=== PATIENT | female | born 1945 | race Caucasian/White ===

== ENCOUNTER 2018-05-17 19:59 | Emergency (ER) | payer SELFPAY ==
[2018-05-17 20:16] LABS: BASO % 0.3 % (0-6); EOS % 1.3 % (0-6); GRAN % 54.8 % (47-80); HEMATOCRIT 39.8 % (35.0-47.0); HEMOGLOBIN 11.9 gm/dl (11.6-16.0); LYMPH % 37.1 % (16-45); MEAN CELL VOLUME 92.1 fl (81-97); MEAN CORPUSCULAR HEMOGLOBIN 27.5 pg (27-33); MEAN CORPUSCULAR HGB CONC 29.9 g/dl (32-36); MEAN PLATELET VOLUME 10.2 fl (7.4-10.4); MONO % 6.5 % (0-9); PLATELET COUNT 249 K/uL (130-400); RED BLOOD COUNT 4.32 M/uL (3.80-5.40); RED CELL DISTRIBUTION WIDTH 14.6 % (11.5-14.5); WHITE BLOOD COUNT W/O DIFF 7.1 K/uL (4.2-12.2)
[2018-05-17 20:23] LABS: BILIRUBIN,TOTAL 0.2 mg/dL (0.2-1.0)
[2018-05-17 20:24] LABS: TOTAL PROTEIN 6.1 g/dL (6.6-8.7)
[2018-05-17 20:29] LABS: ALB/GLOB RATIO 1.7 (1.1-1.8); ALBUMIN 3.8 g/dL (4.0-5.0)
[2018-05-17 20:31] LABS: NTpro B-NATRIURETIC PEPTIDE 131.3 pg/mL (<125)
--- NOTE | 2018-05-17 21:16 | Emergency Department Record ---
History of Present Illness - General Chief Complaint: Fall Injury Stated Complaint: FALL INJURY TO HEAD. ON A BLOOD THINNER Time Seen by Provider: 05/17/18 20:07 Source: Patient Mode of Arrival: Wheelchair Limitations: No limitations - History of Present Illness Initial Comments: pt fell backwards in a chair hitting head on dirt. no loc. she is having head and neck and back pain MD Complaint: Fall Onset/Timin -: Hour(s) Fall From: Chair Fall Witnessed: Yes, by family Loss of Consciousness: None Prolonged Down Time?: No Symptoms Prior to Fall: None Location: Head, Neck, Back - [place] Coma Scale Eye Response: (4) Open spontaneously Motor Response: (6) Obeys commands Verbal Response: (5) Oriented [place] Total: 15 - Related Data Home Medications Medication Instructions Recorded Confirmed Last Taken Diltiazem HCl [Cardizem Cd] 240 mg PO DAILY 05/17/18 05/17/18 Unknown Oxycodone HCl/Acetaminophen 1 tab PO Q6H PRN 05/17/18 05/17/18 Unknown [Percocet 10mg/325mg] Rivaroxaban [Xarelto] 20 mg PO DAILY 05/17/18 05/17/18 Unknown Sertraline HCl [Zoloft] 20 mg PO DAILY 05/17/18 05/17/18 Unknown Simvastatin [Zocor] 20 mg PO DAILY 05/17/18 05/17/18 Unknown Allergies Allergy/AdvReac Type Severity Reaction Status Date / Time clindamycin Allergy RASH Verified 05/17/18 20:24 ketorolac [From Toradol] Allergy RASH Verified 05/17/18 20:24 Travel Screening - Travel/Exposure Within Last 30 Days Have you traveled within the last 30 days?: No - Travel/Exposure Within Last Year Have you traveled outside the [place] in the last year?: No - Additonal Travel Details Have you been exposed to anyone with a communicable illness?: No - Travel Symptoms Symptom Screening: None Review of Systems Reviewed: No additional complaints except as noted below Constitutional: Reports: As per HPI. Denies: Chills, Fever, Malaise, Night sweats, Weakness, Weight change Eyes: Reports: As per HPI. Denies: Eye discharge, Eye pain, Photophobia, Vision change ENT: Reports: As per HPI. Denies: Congestion, Dental pain, Ear pain, Epistaxis , Hearing loss, Throat pain Respiratory: Reports: As per HPI. Denies: Cough, Dyspnea, Hemoptysis, Stridor, Wheezes Cardiovascular: Reports: As per HPI. Denies: Arrhythmia, Chest pain, Dyspnea on exertion, Edema, Murmurs, Orthopnea, Palpitations, Paroxysmal nocturnal dyspnea, Rheumatic Fever, Syncope Endocrine: Reports: As per HPI. Denies: Fatigue, Heat or cold intolerance, Polydipsia, Polyuria Gastrointestinal: Reports: As per HPI. Denies: Abdominal pain, Constipation, Diarrhea, Hematemesis, Hematochezia, Melena, Nausea, Vomiting Genitourinary: Reports: As per HPI. Denies: Abnormal menses, Discharge, Dyspareunia, Dysuria, Frequency, Hematuria, Incontinence, Retention, Urgency Musculoskeletal: Reports: As per HPI. Denies: Arthralgia, Back pain, Gout, Joint swelling, Myalgia, Neck pain Skin: Reports: As per HPI. Denies: Bruising, Change in color, Change in hair/ nails, Lesions, Pruritus, Rash Neurological: Reports: As per HPI. Denies: Abnormal gait, Confusion, Headache, Numbness, Paresthesias, Seizure, Tingling, Tremors, Vertigo, Weakness Psychiatric: Reports: As per HPI. Denies: Anxiety, Auditory hallucinations, Depression, Homicidal thoughts, Suicidal thoughts, Visual hallucinations Hematological/Lymphatic: Reports: As per HPI. Denies: Anemia, Blood Clots, Easy bleeding, Easy bruising, Swollen glands Past Medical History - SOCIAL HISTORY Smoking Status: Never smoker Alcohol Use: None Drug Use: None - RESPIRATORY Hx Respiratory Disorders: No - CARDIOVASCULAR Hx Cardio Disorders: Yes Hx Irregular Heartbeat: Yes (a fib) - NEURO Hx Neuro Disorders: No - GI Hx GI Disorders: No - Hx Genitourinary Disorders: No - ENDOCRINE Hx Endocrine Disorders: No - MUSCULOSKELETAL Hx Musculoskeletal Disorders: No - PSYCH Hx Psych Problems: Yes Hx Depression: Yes - HEMATOLOGY/ONCOLOGY Hx Hematology/Oncology Disorders: No Family Medical History Any Significant Family History?: No Physical Exam - General General Appearance: Alert, Oriented x3, Cooperative - Head Head exam: Normal inspection Head exam detail: Contusion - Eye Eye exam: Normal appearance, PERRL, EOMI Pupils: Normal accommodation - ENT ENT exam: Normal exam, Mucous membranes moist, Normal external ear exam, Normal orophraynx Ear exam: Normal external inspection. negative: External canal tenderness Nasal Exam: Normal inspection. negative: Discharge, Sinus tenderness Mouth exam: Normal external inspection, Tongue normal Teeth exam: Normal inspection. negative: Dental caries Throat exam: Normal inspection. negative: Tonsillar erythema, Tonsillar exudate - Neck Neck exam: Tenderness. negative: Normal inspection, Full ROM - Respiratory Respiratory exam: Normal lung sounds bilaterally. negative: Respiratory distress - Cardiovascular Cardiovascular Exam: Regular rate, Normal rhythm, Normal heart sounds - GI/Abdominal GI/Abdominal exam: Soft, Normal bowel sounds. negative: Tenderness - Rectal Rectal exam: Deferred - exam: Deferred - Extremities Extremities exam: Normal inspection, Full ROM, Normal capillary refill. negative: Tenderness - Back Back exam: Reports: Normal inspection, Tenderness. Denies: Muscle spasm, Rash noted - Neurological Neurological exam: Alert, CN II-XII intact, Normal gait, Oriented X3 - Psychiatric Psychiatric exam: Normal affect, Normal mood - Skin Skin exam: Dry, Intact, Normal color, Warm Course Vital Signs 05/17/18 20:16 Temperature 98.8 F Pulse Rate 66 Respiratory 20 Rate Blood Pressure 137/91 Pulse Ox 97 Medical Decision Making - Lab Data Result diagrams: 05/17/18 20:16 05/17/18 20:18 Lab Results 05/17/18 05/17/18 Range/Units 20:16 20:18 WBC 7.1 (4.2-12.2) K/uL RBC 4.32 (3.80-5.40) M/uL Hgb 11.9 (11.6-16.0) gm/dl Hct 39.8 (35.0-47.0) % MCV 92.1 (81-97) fl MCH 27.5 (27-33) pg MCHC 29.9 L (32-36) g/dl RDW 14.6 H (11.5-14.5) % Plt Count 249 (130-400) K/uL MPV 10.2 (7.4-10.4) fl Gran % 54.8 (47-80) % Lymphocytes % 37.1 (16-45) % Monocytes % 6.5 (0-9) % Eosinophils % 1.3 (0-6) % Basophils % 0.3 (0-6) % Sodium 146 H (136-145) mmol/L Potassium 3.5 (3.4-4.5) mmol/L Chloride 103 (98-107) mmol/L Carbon Dioxide 28.0 (22-29) mmol/L Anion Gap 15.0 (7-16) BUN 13 (8-23) mg/dL Creatinine 1.0 H (0.5-0.9) mg/dL Estimated GFR 58 mL/min Random Glucose 86 (74-109) mg/dL Calcium 8.7 L (8.8-10.2) mg/dL Total Bilirubin 0.20 (0.2-1.0) mg/dL AST 18 (10.0-35.0) U/L ALT 14 (<33) U/L Alkaline Phosphatase 81 (35-104) U/L NT-Pro-B Natriuret Pep 131.30 H (<125) pg/mL Total Protein 6.1 L (6.6-8.7) g/dL Albumin 3.8 L (4.0-5.0) g/dL Globulin 2.3 (1.4-4.8) gm/dL Albumin/Globulin Ratio 1.7 (1.1-1.8) Disposition Disposition: Discharge Clinical Impression: Head injury Qualifiers: Encounter type: initial encounter Qualified Code(s): S09.90XA - Unspecified injury of head, initial encounter Back pain Qualifiers: Back pain location: low back pain Chronicity: acute Back pain laterality: midline Sciatica presence: without sciatica Qualified Code(s): M54.5 - Low back pain Disposition: Home, Self-Care Condition: (1) Good Instructions: Fall Prevention for Older Adults (ED), Head Injury (ED) Additional Instructions: follow up with family doctor. return sooner if worse Forms: Patient Portal Access Quality - Quality Measures Quality Measures: N/A - Blood Pressure Screening Does Patient Have Any of the Following: Active Dx of HTN Blood Pressure Classification: Hypertensive Reading Systolic Measurement: 137 Diastolic Measurement: 91 Screening for High Blood Pressure: Patient Exclusion, Hx of HTN [G9744]
[2018-05-17] MEDS ORDERED: HYDROCODONE/APAP 5/325MG TABLET PO ONE ×2 (21:52→22:15)
--- NOTE | 2018-05-19 13:41 | RADIOLOGY REPORT ---
EXAM: LUMBAR SPINE HISTORY: LOW BACK PAIN FOLLOWING A FALL, HAD BACK SURGERY THREE MONTHS AGO. TECHNIQUE: AP and lateral views of the lumbar spine were obtained. Comparison: None. Encounter: Initial. FINDINGS: There is a mild lumbar curve to the left. There is a posterior fusion from L3 through L5 with intrapedicular screws and bridging vertical rods. There are interspace stabilizers at the L3-L4 and L4-L5 interspaces. Degenerative disk disease seen at all of the other lumbar interspaces as well as at the T12-L1 interspace. No definite fracture of the lumbar spine identified. IMPRESSION: 1. LUMBAR LEVOSCOLIOSIS. 2. POSTERIOR FUSION FROM L3 THROUGH L5. 3. DEGENERATIVE DISK DISEASE ELSEWHERE IN THE LUMBAR SPINE. JOB NUMBER: [id number] MTDD
--- NOTE | 2018-05-19 13:45 | CT SCAN REPORT ---
EXAM: HEAD CT HISTORY: PATIENT FELL WITH HEADACHE. TECHNIQUE: Axial CT scan of the head was performed without IV contrast. Comparison: None. Encounter: Initial. FINDINGS: No definite acute intracranial hemorrhage identified. No focal mass effect or midline shift apparent. Mild generalized atrophy. There is probably a cyst or polyp in the floor of the left maxillary antrum. There may be postop change in the medial wall of both maxillary antra as well as in the ethmoid sinus. Correlation with the surgical history is suggested. No depressed calvarial fracture is evident. IMPRESSION: 1. NO DEFINITE ACUTE INTRACRANIAL HEMORRHAGE OR FOCAL MASS EFFECT EVIDENT. 2. GENERALIZED ATROPHY. 3. PROBABLE POSTOP CHANGE IN THE MAXILLARY SINUSES AND RIGHT ETHMOID. CYST OR POLYP IN THE FLOOR OF THE LEFT MAXILLARY ANTRUM WELL. [facility]BER: [id number] [facility]
--- NOTE | 2018-05-19 14:01 | CT SCAN REPORT ---
EXAM: CERVICAL SPINE CT HISTORY: PATIENT FELL WITH POSTERIOR HEADACHE. TECHNIQUE: Axial CT scan of the entire cervical spine was performed without IV contrast. Comparison: None. Encounter: Initial. FINDINGS: No apical pneumothorax is evident. There is probably some minor opacification in some of the mastoid air cells bilaterally. This could be acute or chronic. No definite fracture of the cervical spine identified and no prevertebral soft tissue swelling is evident. There is advanced degenerative change at the odontoid-anterior arch of C1 articulation. Narrowing particularly of the C5-C6 interspace with associated hypertrophic spurring. Multilevel facet joint arthropathy particularly on the left. IMPRESSION: 1. NO DEFINITE FRACTURE OR PREVERTEBRAL SOFT TISSUE SWELLING SEEN IN THE CERVICAL SPINE. 2. MULTILEVEL DEGENERATIVE CHANGE EVIDENT IN THE CERVICAL SPINE. JOB NUMBER: [id number] [facility]
== END 2018-05-17 22:20 | disposition home or self-care (01) ==
LOC: ER 19:59
DX: S09.90XA Unspecified injury of head, initial encounter (principal); M54.2 Cervicalgia; M54.5 Low back pain; I48.91 Unspecified atrial fibrillation; W07.XXXA Fall from chair, initial encounter; Z79.01 Long term (current) use of anticoagulants
CPT/HCPCS: 70450; 72100; 72125; 80053; 83880; 85025; 99283; 99284

== ENCOUNTER 2018-09-03 23:53 | Emergency (ER) | payer MEDICARE, MEDICAID ==
[2018-09-04] MEDS ORDERED: ONDANSETRON HCL IV 4 MG/2 ML VIAL IVP ONE (00:09)
[2018-09-04] MEDS ORDERED: HYDROMORPHONE HCL 2 MG/ML VIAL IVP ONE (00:09)
[2018-09-04] MEDS ORDERED: ACETAMINOPHEN 1,000 MG/100 ML BTL IVPB ONE (00:15)
--- NOTE | 2018-09-04 00:15 | Emergency Department Record ---
History of Present Illness - General Chief Complaint: Fall Injury Stated Complaint: FALL Time Seen by Provider: 09/03/18 23:54 Source: Patient Mode of Arrival: Ambulatory Limitations: No limitations - History of Present Illness Initial Comments: 72 yo female presents to ED for evaluation following a fall 3 hours ago with pain to the right lower back and right lower abdomen. Patient denies pain to the hip, and reports that she is able to ambulate without difficulty. Patient denies injury to the head or neck, reports (2) previous back surgeries in the past. Patient denies numbness, tingling, or weakness to the extremities on examination. MD Complaint: Fall Onset/Timin -: Hour(s) Fall From: Standing When Fall Occurred: 1-3 hours RECORDER OF DEEDS Fall Witnessed: No Place Fall Occurred: Other (Family's home while visiting) Loss of Consciousness: None Prolonged Down Time?: No Symptoms Prior to Fall: None Location: Pelvis Severity: Moderate Quality: Aching Context: Tripped/slipped Associated Symptoms: Denies - [place] Coma Scale Eye Response: (4) Open spontaneously Motor Response: (6) Obeys commands Verbal Response: (5) Oriented [place] Total: 15 - Related Data Home Medications Medication Instructions Recorded Confirmed Last Taken Omeprazole [Prilosec] 20 mg PO DAILY 09/04/18 09/04/18 Unknown Ranitidine HCl [Zantac] 150 mg PO DAILY 09/04/18 09/04/18 Unknown Allergies Allergy/AdvReac Type Severity Reaction Status Date / Time clindamycin Allergy RASH Verified 05/17/18 20:24 ketorolac [From Toradol] Allergy RASH Verified 05/17/18 20:24 Travel Screening - Travel/Exposure Within Last 30 Days Have you traveled within the last 30 days?: No Review of Systems Constitutional: Denies: Chills, Fever, Malaise, Night sweats Eyes: Denies: Eye discharge, Eye pain ENT: Denies: Congestion, Ear pain, Epistaxis Respiratory: Denies: Cough, Dyspnea Cardiovascular: Denies: Chest pain, Dyspnea on exertion Endocrine: Denies: Fatigue, Heat or cold intolerance Gastrointestinal: Reports: Abdominal pain. Denies: Constipation, Nausea, Vomiting Genitourinary: Denies: Incontinence, Retention Musculoskeletal: Reports: Back pain. Denies: Arthralgia, Gout, Joint swelling Skin: Denies: Bruising, Change in color Neurological: Denies: Abnormal gait, Confusion, Headache, Seizure Psychiatric: Denies: Anxiety Hematological/Lymphatic: Denies: Anemia, Blood Clots Past Medical History - SOCIAL HISTORY Smoking Status: Never smoker Alcohol Use: None Drug Use: None - RESPIRATORY Hx Respiratory Disorders: No - CARDIOVASCULAR Hx Cardio Disorders: Yes Hx Irregular Heartbeat: Yes (a fib) - NEURO Hx Neuro Disorders: No - GI Hx GI Disorders: No - Hx Genitourinary Disorders: No - ENDOCRINE Hx Endocrine Disorders: No - MUSCULOSKELETAL Hx Musculoskeletal Disorders: No - PSYCH Hx Psych Problems: Yes Hx Depression: Yes - HEMATOLOGY/ONCOLOGY Hx Hematology/Oncology Disorders: No Family Medical History Any Significant Family History?: No Physical Exam - General General Appearance: Alert, Oriented x3, Cooperative, Mild distress, Anxious Limitations: No limitations - Head Head exam: Atraumatic, Normocephalic, Normal inspection Head exam detail: negative: Abrasion, Contusion, Heck's sign, General tenderness, Hematoma, Laceration - Eye Eye exam: Normal appearance. negative: Conjunctival injection, Periorbital swelling, Periorbital tenderness, Scleral icterus - ENT Ear exam: negative: Auricular hematoma, Auricular trauma Nasal Exam: negative: Active bleeding, Discharge, Dried blood, Foreign body Mouth exam: negative: Drooling, Laceration, Muffled voice, Tongue elevation - Neck Neck exam: Normal inspection. negative: Meningismus, Tenderness - Respiratory Respiratory exam: Normal lung sounds bilaterally. negative: Rales, Respiratory distress, Rhonchi, Stridor - Cardiovascular Cardiovascular Exam: Regular rate, Normal rhythm, Normal heart sounds - GI/Abdominal GI/Abdominal exam: Soft, Tenderness (TTP to the subcutaneous tissues of the RLQ region/inguinal region, no abrasions/ecchymosis are present.). negative: Rebound, Rigid - Rectal Rectal exam: Deferred - exam: Deferred - Extremities Extremities exam: Normal inspection. negative: Calf tenderness, Pedal edema, Tenderness - Back Back exam: Reports: Paraspinal tenderness (TTP right lower pelvic region). Denies: CVA tenderness (R), CVA tenderness (L) - Neurological Neurological exam: Alert, Normal gait, Oriented X3 - Psychiatric Psychiatric exam: Normal affect, Normal mood - Skin Skin exam: Normal color. negative: Abrasion Type of lesion: negative: abrasion Course Vital Signs 09/04/18 00:00 Temperature 98.3 F Pulse Rate [ 83 Pulse Ox Probe] Respiratory 20 Rate Blood Pressure 147/86 [Left Arm] Pulse Ox 98 - Reevaluation(s) Reevaluation #1: 09/04/18 00:17 MAPS reviewed: 34 providers listed in 2 years. Patient receives Oxycodone #112 tablets monthly Intermittently receives oral Dilaudid for her pain symptoms. Patient's previous records were reviewed in [facility]: Patient was seen [facility] for 8 visit sin June, frequently see approximately 5 visits/month at [facility]. Patient presented to [facility] 07/19/18 for a fall following a bee sting, patient eloped prior to imaging of the head. Patient was recent seen at [facility] (07/21/18), eloped from ED when refused [place] for her chest pain symptoms. Patient was then seen at [place] for evaluation following fall <24 hours later. 09/04/18 00:33 Previous Visit to ED 05/17/18 for fall while at her brother's home. Nursing notes reviewed, patient repeatedly requesting Dilaudid by name, asked for outpatient [place] prescription that was not given by the ED provider at that time. Patient reports today she was visiting her cousin today when a fall occurred. Reevaluation #2: 09/04/18 00:58 CT Abdomen and Pelvis: Patient is noted to be s/p posterior spinal fusion Soft-tissue inflammation likely related to scarring Atrophy of the paraspinal muscles Infiltration of the mesenteric fat, may be related to chronic infection or inflammation Lytic lesion right iliac bone measuring 3.2x1.9 cm which is nonspecific. Patient was updated on her CT imaging findings, no acute traumatic injury is identified. Ofirmev is infusing. Will reassessed following medication administration. Patient's PCP called for consultation as well. Reevaluation #3: 09/04/18 01:07 Case was discussed with Dr. Quezada, was not aware that the patient was being seen in the ED frequently for pain-related issues. Patient does have a pain-contract with Dr. Quezada, would prefer that the patient not receive narcotic pain medication this evening. Reevaluation #4: 09/04/18 01:19 laboratory studies were reviewed and are grossly unremarkable for an acute process. Patient was updated on all results and counseled to follow-up for her right iliac bone region in 2-4 weeks. NURSING STAFF WAS PRESENT FOR EACH AND EVERY ENCOUNTER WITH THE PATIENT. Medical Decision Making - Lab Data Result diagrams: 09/04/18 00:50 09/04/18 00:50 Disposition Disposition: Discharge Clinical Impression: Fall Qualifiers: Encounter type: initial encounter Qualified Code(s): W19.XXXA - Unspecified fall, initial encounter Back contusion Qualifiers: Encounter type: initial encounter Laterality: right Qualified Code(s): S20.221A - Contusion of right back wall of thorax, initial encounter Disposition: Home, Self-Care Condition: (2) Stable Instructions: Contusion in Adults (ED) Additional Instructions: Return to ED if your symptoms worsen or if you have any concerns. Continue your home Percocet as presribed. Follow-up with Dr. Quezada in 1-3 days for further evaluation. Follow-up with Dr. Quezada for further evaluation of your iliac crest lesion as well. Forms: Patient Portal Access Time of Disposition: 01:22 Quality - Quality Measures Quality Measures: N/A - Blood Pressure Screening Does Patient Have Any of the Following: No Blood Pressure Classification: Pre-Hypertensive BP Reading Systolic Measurement: 147 Diastolic Measurement: 86 Screening for High Blood Pressure: < Pre-Hypertensive BP, F/U Documented > [ G8950] Pre-Hypertensive Follow-up Interventions: Referral to alternative/primary care provider.
[2018-09-04 01:00] LABS: BASO % 0.3 % (0-6); GRAN % 46.2 % (47-80); HEMATOCRIT 37.3 % (35.0-47.0); HEMOGLOBIN 11.5 gm/dl (11.6-16.0); LYMPH % 43.9 % (16-45); MEAN CELL VOLUME 89.9 fl (81-97); MEAN CORPUSCULAR HEMOGLOBIN 27.7 pg (27-33); MEAN CORPUSCULAR HGB CONC 30.8 g/dl (32-36); MEAN PLATELET VOLUME 10.1 fl (7.4-10.4); MONO % 8.6 % (0-9); PLATELET COUNT 233 K/uL (130-400); RED BLOOD COUNT 4.15 M/uL (3.80-5.40); RED CELL DISTRIBUTION WIDTH 13.8 % (11.5-14.5); WHITE BLOOD COUNT W/O DIFF 5.8 K/uL (4.2-12.2)
[2018-09-04 01:09] LABS: BLOOD UREA NITROGEN 9 mg/dL (8-23); CREATININE 0.9 mg/dL (0.5-0.9); EST GLOMERULAR FILTRATION RATE > 60 mL/min
[2018-09-04 01:10] LABS: TOTAL PROTEIN 5.8 g/dL (6.6-8.7)
[2018-09-04 01:12] LABS: GLUCOSE,RANDOM 105 mg/dL (74-109)
[2018-09-04 01:14] LABS: ALB/GLOB RATIO 1.9 (1.1-1.8); ALBUMIN 3.8 g/dL (4.0-5.0); ALKALINE PHOSPHATASE 95 U/L (35-104); ALT/SGPT 20 U/L (<33); AST/SGOT 20 U/L (10.0-35.0)
--- NOTE | 2018-09-06 08:09 | CT SCAN REPORT ---
EXAM: NONCONTRAST CT OF THE ABDOMEN AND PELVIS HISTORY: RECENT FALL, RIGHT HIP AND LOWER BACK PAIN. TECHNIQUE: Noncontrast CT of the abdomen and pelvis was obtained. Comparison: Lumbar radiographs 05/17/18. FINDINGS: The visualized lung jensen are clear. Unremarkable noncontrast appearance of the liver, gallbladder, adrenal glands, and spleen. The pancreas is not well seen, it may be markedly atrophic. Suggestion of bilateral renal pelvic cysts. No definite hydronephrosis. No focal colonic thickening or inflammatory changes. The stomach and small bowel are nondilated. No free air or free fluid seen. Minimal calcifications of the aortoiliac arterial access without evidence of aneurysmal dilation. The uterus is not clearly seen, it may be surgically absent. At L3 through L5 posterior spinal instrumentation with rods, pedicle screws, and interbody hardware. The vertebral body heights and alignment are not appreciably changed from comparison radiographs. Ovoid osseous defect involving the posterior right iliac bone measuring approximately 2.3 x 1.5 cm. Induration and stranding of the posterior subcutaneous lower back tissues at the level of the spinal instrumentations noted, presumably post surgical change. No definite acute osseous findings. IMPRESSION: 1. NO DEFINITE ACUTE ABDOMINAL OR PELVIC FINDINGS. 2. THE PANCREAS IS NOT WELL VISUALIZED; MAY REPRESENT MARKED FATTY ATROPHY. 3. OSSEOUS DEFECT MEASURING UP TO 2.3 CM IN THE POSTERIOR RIGHT ILIAC BONE; IN THE SETTING OF PREVIOUS SPINAL INSTRUMENTATION. THIS MAY REPRESENT A BONE GRAFT HARVEST SITE. RECOMMEND CORRELATION WITH PATIENT'S SURGICAL HISTORY A LYTIC BONE LESION COULD HAVE A SIMILAR APPEARANCE. J[facility] NUMBER: [id number] [facility]
== END 2018-09-04 01:38 | disposition home or self-care (01) ==
LOC: ER 23:53
DX: S20.221A Contusion of right back wall of thorax, initial encounter (principal); R10.31 Right lower quadrant pain; I48.91 Unspecified atrial fibrillation; W01.0XXA Fall on same level from slipping, tripping and stumbling without subsequent striking against object, initial encounter; Y92.009 Unspecified place in unspecified non-institutional (private) residence as the place of occurrence of the external cause; Z98.1 Arthrodesis status
CPT/HCPCS: 74176; 80053; 85025; 96365; 96375; 99284

== ENCOUNTER 2018-09-25 06:04 | Emergency (ER) | payer MEDICARE, MEDICAID ==
--- NOTE | 2018-09-25 06:14 | Emergency Department Record ---
History of Present Illness - General Chief complaint: Pain Stated complaint: LEFT KNEE PAIN Time Seen by Provider: 09/25/18 06:07 Source: Patient Mode of Arrival: Ambulatory Limitations: No limitations - History of Present Illness Initial comments: 72 yo female presents with left knee pain. She has been doing more lifting and walking. She reports chronic knee issues. No fevers, warmth or redness. No calf pain or swelling. She moved her recently and does not have a local doctor. MD Complaint: Joint pain -: Month(s) Location: Left, Knee -: Yes Arthralgia Radiation: Distal Quality: Aching Consistency: Constant Improves with: Elevation, Rest Worsens with: Palpation, Walking Associated Symptoms: Arthralgias - Related Data Allergies Allergy/AdvReac Type Severity Reaction Status Date / Time clindamycin Allergy RASH Verified 05/17/18 20:24 ketorolac [From Toradol] Allergy RASH Verified 05/17/18 20:24 Review of Systems Constitutional: Denies: Chills, Fever, Malaise, Weakness Eyes: Denies: Eye discharge ENT: Denies: Congestion, Throat pain Respiratory: Denies: Cough, Dyspnea, Hemoptysis, Stridor, Wheezes Cardiovascular: Denies: Chest pain, Palpitations, Syncope Endocrine: Denies: Fatigue Gastrointestinal: Denies: Abdominal pain, Diarrhea, Nausea, Vomiting Genitourinary: Denies: Dysuria Musculoskeletal: Reports: As per HPI, Arthralgia Skin: Denies: Bruising, Change in color, Rash Neurological: Denies: Numbness, Weakness Psychiatric: Denies: Anxiety Hematological/Lymphatic: Denies: Blood Clots, Easy bleeding, Easy bruising, Swollen glands Past Medical History - SOCIAL HISTORY Smoking Status: Never smoker Drug Use: None - RESPIRATORY Hx Respiratory Disorders: No - CARDIOVASCULAR Hx Cardio Disorders: Yes Hx Irregular Heartbeat: Yes (a fib) - NEURO Hx Neuro Disorders: No - GI Hx GI Disorders: No - Hx Genitourinary Disorders: No - ENDOCRINE Hx Endocrine Disorders: No - MUSCULOSKELETAL Hx Musculoskeletal Disorders: No - PSYCH Hx Psych Problems: Yes Hx Depression: Yes - HEMATOLOGY/ONCOLOGY Hx Hematology/Oncology Disorders: No Physical Exam - General General Appearance: Alert, Oriented x3, Cooperative, No acute distress Limitations: No limitations - Head Head exam: Atraumatic, Normal inspection - Eye Eye exam: Normal appearance. negative: Conjunctival injection, Scleral icterus - ENT ENT exam: Normal exam Ear exam: Normal external inspection Nasal Exam: Normal inspection Mouth exam: Normal external inspection - Neck Neck exam: Normal inspection - Extremities Extremities exam: Normal inspection, Full ROM, Normal capillary refill, Other ( Normal inspection, no warmth or redness. No obvious swelling compared to the right knee, she is tender medially and laterally. ). negative: Calf tenderness , Joint swelling, Pedal edema - Neurological Neurological exam: Alert, Oriented X3 - Psychiatric Psychiatric exam: Normal affect, Normal mood - Skin Skin exam: Dry, Intact, Normal color, Warm Course - Reevaluation(s) Reevaluation #1: 09/25/18 06:22 The patient is new to the area. We discussed a referral to Family Medicine. We discussed all senior care narcotic prescriptions would have to be discussed with a primary care doctor and that that is at the PCP's discretion. 09/25/18 06:45 XR demonstrated mild medial joint space narrowing. Otherwise negative on my prelim read Disposition Disposition: Discharge Clinical Impression: Knee pain, left Qualifiers: Chronicity: acute Qualified Code(s): M25.562 - Pain in left knee Osteoarthritis Qualifiers: Osteoarthritis location: unspecified site Osteoarthritis type: unspecified Qualified Code(s): M19.90 - Unspecified osteoarthritis, unspecified site Disposition: Home, Self-Care Condition: (1) Good Instructions: Arthritis (ED) Additional Instructions: Call the Family [facility] for a family doctor follow up Ice the knee every 4-6 hours Avoid long periods of time standing on the knee Referrals: JOHNSON CERVANTES M.D. [MEDICAL DOCTOR] - Forms: Patient Portal Access Time of Disposition: 06:45 Quality - Quality Measures Quality Measures: N/A - Blood Pressure Screening Does Patient Have Any of the Following: No Blood Pressure Classification: Pre-Hypertensive BP Reading Systolic Measurement: 147 Diastolic Measurement: 85 Screening for High Blood Pressure: < Pre-Hypertensive BP, F/U Documented > [ G8950] Pre-Hypertensive Follow-up Interventions: Referral to alternative/primary care provider.
[2018-09-25] MEDS ORDERED: METHYLPREDNISOLONE 80MG/VIAL IM ONE (06:15)
[2018-09-25] MEDS ORDERED: OXYCODONE HCL/APAP 5MG/325MG TABLET PO ONE (06:15)
--- NOTE | 2018-09-25 15:04 | RADIOLOGY REPORT ---
EXAM: LEFT KNEE HISTORY: PAIN. TECHNIQUE: Four views of the left knee were performed. FINDINGS: No evidence of fracture or dislocation. No radiopaque loose bodies. No joint effusion. There is mild degenerative change in the medial and patellofemoral compartment. IMPRESSION: MILD DEGENERATIVE CHANGE IN THE MEDIAL AND PATELLOFEMORAL COMPARTMENT. NO ACUTE PROCESS. JOB NUMBER: [id number] MTDD
== END 2018-09-25 06:58 | disposition home or self-care (01) ==
LOC: ER 06:04
DX: M17.12 Unilateral primary osteoarthritis, left knee (principal); M25.562 Pain in left knee; I48.91 Unspecified atrial fibrillation
CPT/HCPCS: 96372; 99283; 99284; J1040

== ENCOUNTER 2018-10-13 03:29 | Emergency (ER) | payer MEDICARE, MEDICAID ==
--- NOTE | 2018-10-13 03:38 | Emergency Department Record ---
History of Present Illness - General Chief Complaint: Back Pain/Injury Stated Complaint: L KNEE/BACK PAIN Time Seen by Provider: 10/13/18 03:31 Source: Patient Mode of Arrival: Ambulatory - History of Present Illness Initial Comments: 72 yo female presents with several years of left knee pain and low back pain. She states she has not had any new injuries or changes in her health. She is on Percocet from her PCP. She states she is still moving and does not have immediate access to the pills. No fevers, chills, redness, or swelling. The left knee hurts mostly along patella and medially. The low back chronically hurts in the lumbar area. No incontinence, no retention, no leg numbness or swelling. MD Complaint: Back pain -: Year(s) Place: Home Radiation: Left leg Severity: Moderate Quality: Aching Consistency: Constant Improves With: Immobilization Worsens With: Walking Context: Other (Recent lifting) Associated Symptoms: Denies other symptoms Treatments Prior to Arrival: Prescription analgesics - Related Data Allergies Allergy/AdvReac Type Severity Reaction Status Date / Time clindamycin Allergy RASH Verified 05/17/18 20:24 ketorolac [From Toradol] Allergy RASH Verified 05/17/18 20:24 morphine Allergy HIVES Verified 10/13/18 03:32 Review of Systems Constitutional: Denies: Chills, Fever, Malaise, Weakness Eyes: Denies: Eye discharge ENT: Denies: Congestion, Throat pain Respiratory: Denies: Cough Cardiovascular: Denies: Chest pain, Syncope Endocrine: Denies: Fatigue Gastrointestinal: Denies: Abdominal pain, Diarrhea, Nausea, Vomiting Genitourinary: Denies: Dysuria Musculoskeletal: Reports: Arthralgia, Back pain. Denies: Joint swelling, Myalgia Skin: Denies: Bruising, Change in color, Rash Neurological: Denies: Headache Psychiatric: Denies: Anxiety Hematological/Lymphatic: Denies: Easy bleeding, Easy bruising Past Medical History - SOCIAL HISTORY Smoking Status: Never smoker Drug Use: None - RESPIRATORY Hx Respiratory Disorders: No - CARDIOVASCULAR Hx Cardio Disorders: Yes Hx Irregular Heartbeat: Yes (a fib) - NEURO Hx Neuro Disorders: No - GI Hx GI Disorders: No - Hx Genitourinary Disorders: No - ENDOCRINE Hx Endocrine Disorders: No - MUSCULOSKELETAL Hx Musculoskeletal Disorders: No - PSYCH Hx Psych Problems: Yes Hx Depression: Yes - HEMATOLOGY/ONCOLOGY Hx Hematology/Oncology Disorders: No Physical Exam - General General Appearance: Alert, Oriented x3, Cooperative, No acute distress Limitations: No limitations - Head Head exam: Atraumatic, Normal inspection - Eye Eye exam: Normal appearance. negative: Conjunctival injection - ENT ENT exam: Normal exam Ear exam: Normal external inspection Nasal Exam: Normal inspection Mouth exam: Normal external inspection - Neck Neck exam: Normal inspection - Extremities Extremities exam: Normal inspection, Full ROM, Tenderness. negative: Calf tenderness, Joint swelling, Pedal edema Image of Full Body: 1 - tender medial and anterior, full ROM, no warmth or redness, no palpable effusion 2 - heal surgical scars, no redness or warmth, no swelling - Back Back exam: Reports: Normal inspection, Full ROM, Paraspinal tenderness, Tenderness, Vertebral tenderness - Neurological Neurological exam: Alert, Normal gait (no limitation to walking), Oriented X3. negative: Abnormal gait, Motor sensory deficit - Psychiatric Psychiatric exam: negative: Agitated, Anxious - Skin Skin exam: Dry, Intact, Normal color, Warm Course - Reevaluation(s) Reevaluation #1: The patient was seen and examined. She is here with chronic pain of the back and knee. No new symptoms. She specifically is asking for Percocet. I explained that [facility] has a chronic pain policy for narcotics. I offered non narcotic pain medication options. She declined all my options. She states Percocet is the only medication that helps her. I referred to recent XR's of the knee and lumbar spine. No new additional films would be beneficial. I requested she call her PCP who manages her long term care pharmacist pain control. [facility] was reviewed. Multiple ED visits at other ED's discovered. The patient stood up and left after I informed her narcotic pain medication she requests would not be given. 10/13/18 03:39 EMR reviewed Prior similar visits for pain in the same locations Prior visit specifically seeking narcotic pain medication 10/13/18 03:49 Disposition Disposition: Discharge Clinical Impression: Osteoarthritis, Chronic pain Disposition: Home, Self-Care Condition: (1) Good Instructions: Osteoarthritis (ED), Low Back Strain (ED) Additional Instructions: Call your doctor for pain long term care pharmacist pain control Call the numbers provided for a new family doctor Forms: Patient Portal Access Time of Disposition: 03:38 Quality - Quality Measures Quality Measures: N/A - Blood Pressure Screening Does Patient Have Any of the Following: No Blood Pressure Classification: Pre-Hypertensive BP Reading Systolic Measurement: 149 Diastolic Measurement: 82 Screening for High Blood Pressure: < Pre-Hypertensive BP, F/U Documented > [ G8950] Pre-Hypertensive Follow-up Interventions: Referral to alternative/primary care provider.
== END 2018-10-13 03:42 | disposition home or self-care (01) ==
LOC: ER 03:29
DX: M17.12 Unilateral primary osteoarthritis, left knee (principal); M47.9 Spondylosis, unspecified; M54.5 Low back pain; M25.562 Pain in left knee; G89.29 Other chronic pain; I48.91 Unspecified atrial fibrillation

== ENCOUNTER 2018-10-24 20:29 | Emergency (ER) | payer MEDICARE, MEDICAID ==
--- NOTE | 2018-10-24 20:42 | Emergency Department Record ---
History of Present Illness - General Chief Complaint: Back Pain/Injury Stated Complaint: LOWER BACK PAIN Time Seen by Provider: 10/24/18 20:41 Source: Patient Mode of Arrival: Ambulatory Limitations: No limitations - History of Present Illness Initial Comments: The patient is here due to worsening of her chronic back pain. She states she was lifting today and her chronic pain worsened. She now did run out of her Percocet. The pain is worse with movement and twisting. There is no radiation down the legs or any leg numbness, or weakness or any bowel or bladder issues. MD Complaint: Back pain Onset/Timin -: Days(s) - Related Data Allergies Allergy/AdvReac Type Severity Reaction Status Date / Time clindamycin Allergy RASH Verified 10/24/18 20:43 ketorolac [From Toradol] Allergy RASH Verified 10/24/18 20:43 morphine Allergy HIVES Verified 10/24/18 20:43 Review of Systems Constitutional: Denies: Chills, Fever Eyes: Denies: Eye discharge ENT: Denies: Congestion Respiratory: Denies: Cough, Dyspnea Past Medical History - SOCIAL HISTORY Smoking Status: Never smoker Drug Use: None - RESPIRATORY Hx Respiratory Disorders: No - CARDIOVASCULAR Hx Cardio Disorders: Yes Hx Irregular Heartbeat: Yes (a fib) - NEURO Hx Neuro Disorders: No - GI Hx GI Disorders: No - Hx Genitourinary Disorders: No - ENDOCRINE Hx Endocrine Disorders: No - MUSCULOSKELETAL Hx Musculoskeletal Disorders: No - PSYCH Hx Psych Problems: Yes Hx Depression: Yes - HEMATOLOGY/ONCOLOGY Hx Hematology/Oncology Disorders: No Physical Exam - General General Appearance: Alert, Oriented x3, Cooperative, No acute distress - Head Head exam: Atraumatic, Normocephalic, Normal inspection - Eye Eye exam: Normal appearance, PERRL, EOMI - Neck Neck exam: Normal inspection, Full ROM. negative: Tenderness - Respiratory Respiratory exam: Normal lung sounds bilaterally. negative: Respiratory distress - Cardiovascular Cardiovascular Exam: Regular rate, Normal rhythm, Normal heart sounds - GI/Abdominal GI/Abdominal exam: Soft, Normal bowel sounds. negative: Tenderness - Extremities Extremities exam: Normal inspection, Full ROM, Normal capillary refill, Other ( Neg SLR.). negative: Tenderness - Back Back exam: Reports: Normal inspection, Paraspinal tenderness (lower lumbar.). Denies: Vertebral tenderness - Neurological Neurological exam: Alert, Normal gait, Oriented X3, Reflexes normal. negative: Abnormal gait, Altered, Motor sensory deficit Course Vital Signs 10/24/18 20:37 Temperature 97.9 F Pulse Rate [ 98 H Pulse Ox Probe] Respiratory 16 Rate Blood Pressure 154/95 [Left Arm] Pulse Ox 99 - Reevaluation(s) Reevaluation #1: The patient is doing very well at this time. She is ready for home. 10/24/18 21:10 Disposition Disposition: Discharge Clinical Impression: Chronic pain Qualifiers: Chronic pain type: other chronic pain Qualified Code(s): G89.29 - Other chronic pain Disposition: Home, Self-Care Condition: (2) Stable Instructions: Chronic Back Pain (ED) Additional Instructions: Please continue your regular medicines and please see your doctor tomorrow as planned. Please return to the ER for any worsening pain, fever, leg numbness, weakness, or any bowel or bladder issues. Forms: Patient Portal Access Time of Disposition: 21:11 Quality - Quality Measures Quality Measures: N/A - Blood Pressure Screening View Details: Yes Does Patient Have Any of the Following: Active Dx of HTN Blood Pressure Classification: Hypertensive Reading Systolic Measurement: 154 Diastolic Measurement: 95 Screening for High Blood Pressure: Patient Exclusion, Hx of HTN [G9744]
[2018-10-24] MEDS ORDERED: KETOROLAC 30 MG/ML VIAL IM ONE (20:49)
== END 2018-10-24 21:13 | disposition home or self-care (01) ==
LOC: ER 20:29
DX: G89.11 Acute pain due to trauma (principal); M54.5 Low back pain; X50.9XXA Other and unspecified overexertion or strenuous movements or postures, initial encounter
CPT/HCPCS: 96372; 99283; J1885

== ENCOUNTER 2018-12-05 22:26 | Emergency (ER) | payer MEDICARE, MEDICAID ==
[2018-12-05] MEDS ORDERED: HYOSCYAMINE SULFATE ODT 0.125 MG TAB.SUBL SL ONE (22:42)
--- NOTE | 2018-12-05 22:46 | Emergency Department Record ---
History of Present Illness - General Chief Complaint: Abdominal Pain Stated Complaint: ABDOMINAL PAIN Time Seen by Provider: 12/05/18 22:33 Source: Patient Mode of Arrival: Ambulatory Limitations: No limitations - History of Present Illness Initial Comments: 72 yo female presents to ED for evaluation of diffuse abdominal pain for the past 3 weeks. Patient denies fevers, chills, or or change in stools. Patient reports that she was told that her gallbladder would need to be removed previously, however she not "want to go into the hospital". Patient denies fevers, chills, or urinary symptoms. MD Complaint: Abdominal pain Onset/Timin -: Week(s) Location: Diffuse Radiation: None Migration to: No migration Severity: Severe Quality: Aching Consistency: Constant Improves With: Nothing Worsens With: Nothing Associated Symptoms: Denies other symptoms - Related Data Patient : No Home Medications Medication Instructions Recorded Confirmed Last Taken Oxybutynin Chloride [Ditropan] 5 mg PO DAILY 12/05/18 12/05/18 Unknown Pregabalin [Lyrica] 75 mg PO TID 12/05/18 12/05/18 12/05/18 Zolpidem Tartrate 10 mg PO QHS 12/05/18 12/05/18 Unknown Previous Rx's Medication Instructions Recorded Polyethylene Glycol 3350 [Miralax] 1 packet PO DAILY #10 packet 12/06/18 Allergies Allergy/AdvReac Type Severity Reaction Status Date / Time clindamycin Allergy RASH Verified 12/05/18 22:40 ketorolac [From Toradol] Allergy RASH Verified 12/05/18 22:40 morphine Allergy HIVES Verified 12/05/18 22:40 Review of Systems Constitutional: Denies: Chills, Fever, Malaise, Night sweats Eyes: Denies: Eye discharge, Eye pain ENT: Denies: Congestion, Ear pain, Epistaxis Respiratory: Denies: Cough, Dyspnea Cardiovascular: Denies: Chest pain, Dyspnea on exertion Endocrine: Denies: Fatigue, Heat or cold intolerance Gastrointestinal: Reports: Abdominal pain. Denies: Nausea, Vomiting Genitourinary: Denies: Incontinence, Retention Musculoskeletal: Denies: Arthralgia, Back pain Skin: Denies: Bruising, Change in color Neurological: Denies: Abnormal gait, Confusion, Headache, Seizure Psychiatric: Denies: Anxiety Hematological/Lymphatic: Denies: Anemia, Blood Clots Past Medical History - SOCIAL HISTORY Smoking Status: Never smoker Drug Use: None - RESPIRATORY Hx Respiratory Disorders: No - CARDIOVASCULAR Hx Cardio Disorders: Yes Hx Irregular Heartbeat: Yes (a fib) - NEURO Hx Neuro Disorders: No - GI Hx GI Disorders: No - Hx Genitourinary Disorders: No - ENDOCRINE Hx Endocrine Disorders: No - MUSCULOSKELETAL Hx Musculoskeletal Disorders: No - PSYCH Hx Psych Problems: Yes Hx Depression: Yes - HEMATOLOGY/ONCOLOGY Hx Hematology/Oncology Disorders: No Physical Exam - General General Appearance: Alert, Oriented x3, Cooperative, Mild distress, Anxious Limitations: No limitations - Head Head exam: Atraumatic, Normocephalic, Normal inspection Head exam detail: negative: Abrasion, Contusion, Heck's sign, General tenderness, Hematoma, Laceration - Eye Eye exam: Normal appearance. negative: Conjunctival injection, Periorbital swelling, Periorbital tenderness, Scleral icterus - ENT Ear exam: negative: Auricular hematoma, Auricular trauma Nasal Exam: negative: Active bleeding, Discharge, Dried blood, Foreign body Mouth exam: negative: Drooling, Laceration, Muffled voice, Tongue elevation - Neck Neck exam: Normal inspection. negative: Meningismus, Tenderness - Respiratory Respiratory exam: Normal lung sounds bilaterally. negative: Rales, Respiratory distress, Rhonchi, Stridor - Cardiovascular Cardiovascular Exam: Regular rate, Normal rhythm, Normal heart sounds - GI/Abdominal GI/Abdominal exam: Soft, Tenderness (TTP epigastric region on examination). negative: Rebound, Rigid - Rectal Rectal exam: Deferred - exam: Deferred - Extremities Extremities exam: Normal inspection. negative: Calf tenderness, Pedal edema, Tenderness - Back Back exam: Denies: CVA tenderness (R), CVA tenderness (L) - Neurological Neurological exam: Alert, Normal gait, Oriented X3 - Psychiatric Psychiatric exam: Normal affect, Normal mood - Skin Skin exam: Normal color. negative: Abrasion Type of lesion: negative: abrasion Course - Reevaluation(s) Reevaluation #1: 12/05/18 23:17 Previous records/ED visits were reviewed. Laboratory studies were reviewed here in the ED and appear grossly unremarkable for an acute process. Reevaluation #2: 12/06/18 00:27 CT Abdomen and Pelvis: Mild intra-as well as extrahepatic ductal dilitation Moderate diverticulosis Stable appearing lumbar fusion Patient was updated on all results, recommended miralax as needed for constipation symptoms. Patient appears stable for discharge at this time. Medical Decision Making - Lab Data Result diagrams: 12/05/18 22:50 12/05/18 22:50 Disposition Disposition: Discharge Clinical Impression: Constipation Qualifiers: Constipation type: unspecified constipation type Qualified Code(s): K59.00 - Constipation, unspecified Chronic pain Qualifiers: Chronic pain type: chronic pain syndrome Qualified Code(s): G89.4 - Chronic pain syndrome Disposition: Home, Self-Care Condition: (2) Stable Instructions: Constipation (ED) Additional Instructions: Return to ED if your symptoms worsen or if you have any concerns. Miralax as directed. Follow-up with your family doctor in 3-5 days as directed. Prescriptions: Polyethylene Glycol 3350 [Miralax] 1 packet PO DAILY #10 packet Forms: Patient Portal Access Time of Disposition: 00:30 Quality - Quality Measures Quality Measures: N/A - Blood Pressure Screening Does Patient Have Any of the Following: No Blood Pressure Classification: Pre-Hypertensive BP Reading Systolic Measurement: 126 Diastolic Measurement: 77 Screening for High Blood Pressure: < Pre-Hypertensive BP, F/U Documented > [ G8950] Pre-Hypertensive Follow-up Interventions: Referral to alternative/primary care provider.
[2018-12-05 22:59] LABS: BASO % 0.3 % (0-6); EOS % 0.5 % (0-6); GRAN % 60.4 % (47-80); HEMATOCRIT 38.2 % (35.0-47.0); HEMOGLOBIN 11.8 gm/dl (11.6-16.0); LYMPH % 33.7 % (16-45); MEAN CELL VOLUME 90.7 fl (81-97); MEAN CORPUSCULAR HGB CONC 30.9 g/dl (32-36); MEAN PLATELET VOLUME 10.8 fl (7.4-10.4); MONO % 5.1 % (0-9); PLATELET COUNT 275 K/uL (130-400); RED BLOOD COUNT 4.21 M/uL (3.80-5.40); RED CELL DISTRIBUTION WIDTH 14.7 % (11.5-14.5); WHITE BLOOD COUNT W/O DIFF 9.4 K/uL (4.2-12.2)
[2018-12-05 23:00] LABS: URINE APPEARANCE SL CLOUDY; URINE BILIRUBIN NEGATIVE (NEGATIVE); URINE BLOOD TRACE-I (NEGATIVE); URINE COLOR YELLOW; URINE GLUCOSE (UA) NEGATIVE (NEGATIVE); URINE KETONE NEGATIVE (NEGATIVE); URINE LEUKOCYTE ESTERASE SMALL (NEGATIVE); URINE NITRITE NEGATIVE (NEGATIVE); URINE PROTEIN NEGATIVE (NEGATIVE); URINE UROBILINOGEN 0.2 E.U./dL (0.20 - 1.00)
[2018-12-05 23:07] LABS: URINE BACTERIA 1+; URINE EPITHELIAL CELLS 0 - 2 (FEW); URINE RBC 0 - 2 (NONE SEEN); URINE WBC 0 - 2 (0-2/hpf)
[2018-12-05 23:08] LABS: BLOOD UREA NITROGEN 14 mg/dL (8-23); CREATININE 0.8 mg/dL (0.5-0.9); EST GLOMERULAR FILTRATION RATE > 60 mL/min; TOTAL PROTEIN 6.1 g/dL (6.6-8.7)
[2018-12-05 23:09] LABS: LIPASE 5 U/L (13-60)
[2018-12-05 23:10] LABS: GLUCOSE,RANDOM 93 mg/dL (74-109)
[2018-12-05 23:13] LABS: ALB/GLOB RATIO 1.4 (1.1-1.8); ALBUMIN 3.6 g/dL (4.0-5.0); ALKALINE PHOSPHATASE 99 U/L (45-87); ALT/SGPT 20 U/L (<33); AST/SGOT 23 U/L (10.0-35.0)
--- NOTE | 2018-12-07 09:23 | CT SCAN REPORT ---
EXAM: CT OF THE ABDOMEN AND PELVIS WITH CONTRAST HISTORY: GENERALIZED ABDOMINAL PAIN. TECHNIQUE: CT of the abdomen and pelvis was obtained with 100 ml Omnipaque 300 intravenous contrast. Comparison: Noncontrast CT of the abdomen and pelvis 09/04/18. FINDINGS: Mild bibasilar atelectasis. Mild intrahepatic biliary ductal dilation with was not clearly appreciated on the previous noncontrast study. Borderline dilatation of the common bile duct, measuring up to 8 mm in diameter; similar from prior CT. Unremarkable CT appearance of the gallbladder. Marked fatty atrophy of the pancreas. The spleen and adrenal glands are unremarkable. Symmetric renal perfusion. No hydronephrosis. Small bilateral renal pelvic cysts. No focal colonic thickening or inflammatory changes. Normal appendix. The stomach and small bowel are not dilated. No mesenteric adenopathy. No free air or free fluid. The uterus appears absent. Unremarkable appearance of the urinary bladder. The abdominal aorta is mildly calcified and tortuous without evidence of aneurysmal dilatation or dissection. Post surgical changes of the lumbar spine are again seen. An osseous defect within the posterior right iliac bone is unchanged from prior study, nonspecific , but again may represent a bone graft harvest site. IMPRESSION: 1. NO DEFINITE ACUTE INTRAABDOMINAL AND PELVIC FINDINGS. 2. BORDERLINE DILATATION OF THE COMMON BILE DUCT WHICH APPEARS OVERALL SIMILAR FROM COMPARISON CT ON 09/04/18. THERE IS ALSO MILD INTRAHEPATIC BILIARY DUCTAL DILATATION WHICH WAS NOT CLEARLY SEEN ON PRIOR CT, OTHERWISE NO OBVIOUS ABNORMALITY OF THE GALLBLADDER OR BILIARY TREE BY CT. IF THERE IS CONCERN FOR AN OBSTRUCTIVE BILIARY PROCESS CONSIDER FOLLOW-UP WITH MRCP. 3. ADDITIONAL INCIDENTAL AND CHRONIC FINDINGS DESCRIBED IN THE BODY OF THE REPORT. JOB NUMBER: [id number] [facility]
== END 2018-12-06 00:41 | disposition home or self-care (01) ==
LOC: ER 22:26
DX: K59.00 Constipation, unspecified (principal); G89.4 Chronic pain syndrome; R10.13 Epigastric pain; I48.91 Unspecified atrial fibrillation
CPT/HCPCS: 99283; 99284; 83690; 85025; 80053; 81001; 74177; Q9967; J1980